=== PATIENT | female | born 1980 | race Caucasian/White ===

== ENCOUNTER 2017-05-28 18:46 | Emergency (ER) | payer MEDICAID ==
[~2017-05-28] VITALS: Ht 154.9 cm; Wt 98.0 kg
[~2017-05-28 18:46] MED LIST: GEMF600T; LEVOTHYROXINE PO; METFORMIN 500 MG PO
[2017-05-28 22:23] VITALS: BP 142/76
[2017-05-28] MEDS ORDERED: ACETAMINOPHEN 650MG/20.3ML UDC PO ONE (22:30)
== END 2017-05-28 22:24 | disposition home or self-care (01) ==
LOC: ER 20:54
DX: S16.1XXA Strain of muscle, fascia and tendon at neck level, initial encounter (principal); M25.512 Pain in left shoulder; X58.XXXA Exposure to other specified factors, initial encounter; Y93.9 Activity, unspecified; Y92.9 Unspecified place or not applicable; R03.0 Elevated blood-pressure reading, without diagnosis of hypertension; E11.9 Type 2 diabetes mellitus without complications; J45.909 Unspecified asthma, uncomplicated; F12.90 Cannabis use, unspecified, uncomplicated; Z63.31 Absence of family member due to military deployment; Z63.79 Other stressful life events affecting family and household; Z90.89 Acquired absence of other organs; Z79.84 Long term (current) use of oral hypoglycemic drugs; Z98.890 Other specified postprocedural states
CPT/HCPCS: 99282

== ENCOUNTER 2020-02-20 16:04 | Emergency (ER) | payer MEDICAID ==
[~2020-02-20] VITALS: Ht 154.9 cm; Wt 100.0 kg
[~2020-02-20 16:04] MED LIST changes: -GEMF600T
[2020-02-20] MEDS ORDERED: IBUPROFEN 600MG TABLET PO ONE (17:30)
[2020-02-20 17:58] VITALS: BP 165/98
== END 2020-02-20 18:09 | disposition home or self-care (01) ==
LOC: ER 16:04
DX: K05.30 Chronic periodontitis, unspecified (principal); K02.9 Dental caries, unspecified; R03.0 Elevated blood-pressure reading, without diagnosis of hypertension; E11.9 Type 2 diabetes mellitus without complications; J45.909 Unspecified asthma, uncomplicated; Z87.19 Personal history of other diseases of the digestive system
CPT/HCPCS: 99282